=== PATIENT | female | born 1975 | race Caucasian/White ===

== ENCOUNTER → 2017-05-17 | Outpatient (CLI) | payer OTHER ==
--- NOTE | 2017-05-17 09:28 | REP ---
CT of the chest without IV contrast: There are no comparison studies. There are no infiltrates or effusions. There are no nodules. There are no masses. There are numerous small bulla throughout the lung lane bilaterally, particularly in the upper lobes, compatible with bullous emphysema. There is no mediastinal or axillary adenopathy. The study is insensitive for hilar adenopathy in the absence of IV contrast. The thoracic aorta is unremarkable. Cardiac size is normal. The visualized upper abdominal contents are unremarkable. There is no adrenal mass. Impression: Numerous small bullae throughout the lung lane bilaterally compatible with bullous emphysema. No infiltrate, effusion, nodule or mass. No adenopathy. Signed by Sd Davis MD 05/17/2017 09:20 A
== END ==
LOC: M RAD 08:50
PROVIDERS: ATTEND Internal Medicine Pulmonary Disease
DX: J98.4 Other disorders of lung (principal); R05 Cough

== ENCOUNTER → 2017-12-15 | Outpatient (CLI) | payer OTHER | LOC: M RAD 11:05 | DX: N64.4 Mastodynia (principal) | CPT/HCPCS: 77066 ==